=== PATIENT | male | born 1960 | race Caucasian/White ===

== ENCOUNTER 2018-12-18 09:44 | Outpatient (CLI) | payer OTHER ==
[2018-12-18 10:57] LABS: BASOPHILS # (AUTO) 0.1 K/uL (0.00-0.22); BASOPHILS % (AUTO) 1.1 % (0.0-2.0); EOSINOPHILS # (AUTO) 0.2 K/uL (0-0.4); EOSINOPHILS % (AUTO) 1.9 % (0.0-4.0); HEMATOCRIT 46.7 % (36-52); HEMOGLOBIN 15.7 g/dL (12.0-18.0); LYMPHOCYTES # (AUTO) 2.6 K/uL (2.0-11.5); LYMPHOCYTES % (AUTO) 31.8 % (20.5-51.1); MEAN CORPUSCULAR HEMOGLOBIN 28 pg (27-31); MEAN CORPUSCULAR HGB CONC 34 g/dL (33-37); MEAN CORPUSCULAR VOLUME 82.1 fL (80-94); MONOCYTES # (AUTO) 0.6 K/uL (0.8-1.0); MONOCYTES % (AUTO) 7.7 % (1.7-9.3); NEUTROPHILS # (AUTO) 4.7 K/uL (1.8-7.7); NEUTROPHILS % (AUTO) 57.5 % (42.2-75.2); PLATELET COUNT (AUTO) 269 K/uL (140-450); RED BLOOD CELL COUNT(AUTO) 5.69 MIL/uL (4.20-6.10); RED CELL DISTRIBUTION WIDTH 13.5 % (11.6-13.7); WHITE BLOOD COUNT (AUTO) 8.2 K/uL (4.8-10.8)
[2018-12-18 11:05] LABS: APPEARANCE,URINE CLEAR (CLEAR); BILIRUBIN,URINE NEGATIVE (NEGATIVE); BLOOD, URINE NEGATIVE (NEGATIVE); COLOR,URINE YELLOW (YELLOW); LEUKOCYTE ESTERASE ,URINE NEGATIVE (NEGATIVE); NITRITE, URINE NEGATIVE (NEGATIVE); PH,URINE 6.5 (5.0-9.0); UGLUCOSE NEGATIVE (NEGATIVE)
[2018-12-18 11:40] LABS: ALBUMIN 4.1 g/dL (3.4-5.0); ANION GAP 14.3 (8-16); CARBON DIOXIDE 27.7 mmol/L (21-32); THYROID STIMULATING HORMONE 0.7 uIU/mL (0.34-3.74)
[2018-12-18 11:59] LABS: CHOL/HDL RATIO 4.1 (1-4.5); CREATININE 1.1 mg/dL (0.7-1.3); FREE T4 (FREE THYROXINE) 0.99 ng/dL (0.76-1.46); TOTAL BILIRUBIN 0.6 mg/dL (0.0-1.0)
[2018-12-21 06:09] LABS: PROSTATE SPEC AG TOTAL 0.7 ng/mL (0.0-4.0)
== END 2018-12-18 20:31 | disposition home or self-care (01) ==
LOC: MLB 09:44
PROVIDERS: ATTEND Family Medicine
DX: Z00.00 Encounter for general adult medical examination without abnormal findings (principal)
CPT/HCPCS: 36415; 80053; 81003; 82306; 83735; 84153; 84439; 84443; 84480; 85025